=== PATIENT | male | born 1990 | race Caucasian/White ===

== ENCOUNTER → 2024-03-30 | Outpatient (CLI) | payer OTHER | LOC: MHCPAIN 09:30 | DX: M47.817 Spondylosis without myelopathy or radiculopathy, lumbosacral region (principal); M54.50 Low back pain, unspecified | CPT/HCPCS: J0665 ==

== ENCOUNTER → 2024-04-04 | Outpatient (CLI) | payer OTHER | LOC: MHCPAIN 09:17 | DX: M47.817 Spondylosis without myelopathy or radiculopathy, lumbosacral region (principal); M51.27 Other intervertebral disc displacement, lumbosacral region; M54.18 Radiculopathy, sacral and sacrococcygeal region | CPT/HCPCS: G0463 ==

== ENCOUNTER → 2024-05-18 | Outpatient (CLI) | payer OTHER ==
[~2024-05-18] MED LIST: Lidocaine PF 2% (20 MG/ML) 5 ML VIAL ONE; Midazolam 2 MG/2 ML VIAL ONE; fentaNYL 50 MCG/ML 2 ML VIAL ONE
== END ==
LOC: MHCPAIN 09:49
DX: M47.817 Spondylosis without myelopathy or radiculopathy, lumbosacral region (principal); M54.50 Low back pain, unspecified
CPT/HCPCS: J0665; J2250; J3010